=== PATIENT | female | born 1980 | race Caucasian/White ===

== ENCOUNTER 2021-11-21 15:25 | Emergency (ER) | payer MEDICAID ==
[~2021-11-21] VITALS: Ht 157.5 cm; Wt 77.0 kg
[2021-11-21 15:31] VITALS: BP 114/81
== END 2021-11-21 23:50 | disposition left against medical advice (07) ==
LOC: ER 15:25
DX: Z53.21 Procedure and treatment not carried out due to patient leaving prior to being seen by health care provider (principal)